=== PATIENT | female | born 1985 | race Caucasian/White ===

== ENCOUNTER 2018-01-05 22:48 | Emergency (ER) | payer OTHER ==
[2018-01-05 23:00] VITALS: BP 133/95; PULSE 60; TEMP 98; BMI 21.9
[2018-01-06] MEDS ORDERED: LIDOCAINE 2.5%/PRILOCAINE 2.5% (5 Gram/TUBE) TP ONE (00:30)
--- NOTE | 2018-01-06 01:30 | PDOC ---
History of Present Illness - General Chief Complaint: Foreign Body (FB) Stated Complaint: TICK REMOVAL Time Seen by Provider: 01/05/18 23:16 - History of Present Illness Initial Comments: This 32-year-old woman with no significant past medical history presents with embedded tick on her back, left side. Patient had walked earlier today on a wooded path. Patient states that she had turtleneck and jacket on but despite this, she noted a tick embedded on her arm. She was seen in urgent care and tick was removed with administration of one dose of doxycycline. Tonight, she noted an additional tick on her mid back. No history of Lyme disease or other chronic illness. Patient is on no medication and has no known ALLERGIES Past History - Past Medical History Allergies/Adverse Reactions: Allergies Allergy/AdvReac Type Severity Reaction Status Date / Time No Known Allergies Allergy Verified 01/11/15 14:11 Home Medications: Ambulatory Orders NK [No Known Home Medication] 01/11/16 COPD: No - Suicide/Smoking/Psychosocial Hx Smoking History: Never smoked Have you smoked in the past 12 months: No Number of Cigarettes Smoked Daily: 0 Information on smoking cessation initiated: No Hx Alcohol Use: No Drug/Substance Use Hx: No Substance Use Type: None Review of Systems - Review of Systems Able to Perform ROS?: Yes Comments:: 12 point review of systems is negative except for what is noted in the history of present illness *Physical Exam - Vital Signs Last Vital Signs Temp Pulse Resp BP Pulse Ox 98 F 60 14 133/95 100 01/05/18 22:57 01/05/18 22:57 01/05/18 22:57 01/05/18 22:57 01/05/18 22:57 - Physical Exam Comments: GENERAL: Adult female, alert and oriented 3, in no acute distress HEAD: Normal with no signs of trauma. EYES: PERRLA, EOMI, sclera anicteric, conjunctiva clear. ENT: Ears normal, nares patent, oropharynx clear without exudates. Dry mucous membranes. NECK: Normal range of motion, supple without lymphadenopathy, JVD, or masses. LUNGS: Breath sounds equal, clear to auscultation bilaterally. No wheezes, and no crackles. HEART:Regular rate and rhythm, normal S1 and S2 without murmur, rub or gallop. ABDOMEN:.normal bowel sounds No guarding,tenderness or rebound.No masses No distention. EXTREMITIES: Normal range of motion, no edema. No clubbing or cyanosis. No erythema, or tenderness. NEUROLOGICAL: Cranial nerves II through XII grossly intact. Normal speech. No focal neurological deficits. MUSCULOSKELETAL: Back non-tender to palpation, no CVA tenderness SKIN: Left posterior thorax/mid back-nonengorged tick semi-embedded in skin; no surrounding edema /erythema No other rash or lesion noted Using sterile technique, area around the embedded tick was cleansed using Hibiclens/ethanol solution. emla cream had previously be placed on the area. Using sterile forceps, majority of the insect was removed intact. There was a small portion of the leg of the insect that was adherent to the subcutaneous tissue. This was grasped using fine nontoothed forceps and removed. Wound is irrigated using 20 mL of sterile normal saline. Bacitracin and Band-Aid was applied. Patient tolerated procedure well *DC/Admit/Observation/Transfer Diagnosis at time of Disposition: Tick bite of back Qualifiers: Encounter type: initial encounter Qualified Code(s): S30.860A - Insect bite ( nonvenomous) of lower back and pelvis, initial encounter - Discharge Dispostion Disposition: HOME Condition at time of disposition: Stable - Referrals - Patient Instructions Printed Discharge Instructions: How to Remove a Tick Additional Instructions: Bacitracin/Neosporin and Band-Aid to wound daily for the next 3 days, then leave open to air Return or see your doctor if you develop rash/fever/bodyaches - Post Discharge Activity
== END 2018-01-06 01:32 | disposition home or self-care (01) ==
LOC: FER 22:48
DX: S30.860A Insect bite (nonvenomous) of lower back and pelvis, initial encounter (principal); X58.XXXA Exposure to other specified factors, initial encounter; Y93.89 Activity, other specified; Y92.9 Unspecified place or not applicable
CPT/HCPCS: 99282-25